=== PATIENT | female | born 1950 | race Caucasian/White ===

== ENCOUNTER 2017-09-19 05:57 | Day surgery (SDC) | payer MEDICARE, OTHER ==
[2017-09-18 09:53] VITALS: BMI 29.0
[~2017-09-19 05:57] MED LIST: LACTATED RINGERS 1,000 ML IV SCH
[2017-09-19 06:54] VITALS: TEMP 97.4
[2017-09-19] MEDS ORDERED: PROPOFOL 10 MG/ML 20 ML VIAL IV ONE (07:04)
[2017-09-19 07:32] VITALS: PULSE 82
--- NOTE | 2017-09-19 07:32 | P.PCN ---
Date of Procedure: 09/19/17 Procedure(s) Performed: Procedure: Total colonoscopy. Preoperative diagnosis: Occult positive blood in the stools. Postoperative diagnosis: Low-grade internal hemorrhoids without bleeding, otherwise, exam to the cecum within normal limits. Preparation: HalfLytely prep. Sedation: Was provided by anesthesia. Brief clinical history: The patient is a 66-year-old female who is referred for this evaluation because of finding of positive occult blood in her stools. She had a prior colonoscopy in 2005. She has not been having any abdominal complaints, bleeding or anemia. Procedure: With the patient on her left lateral decubitus position and after informed consent and adequate sedation, the perianal area was inspected and it did not show any fissures or fistulas. There were no masses felt on digital rectal examination. The Olympus CFQ 160L video colonoscope was then inserted in the rectum in the usual fashion and advanced to the cecum. The preparation was good. The mucosa appeared healthy. No obvious polyps or tumors were seen or any obvious diverticular disease or other pathology. All fecal water was yellowish in color. I retroflexed the endoscope in the rectum before the endoscope was withdrawn. Low-grade internal hemorrhoids were noted without any evidence of bleeding. The patient tolerated the procedure well. Plan: The patient was reassured. She will follow-up with you as planned. In the absence of upper abdominal complaints or anemia, I did not recommend upper GI workup at this time further workup of her Hemoccult-positive stools. This can be kept as a contingency based on her course. I will be happy to see in the future.
[2017-09-19 07:50] VITALS: BP 128/74; RESP 18
== END 2017-09-19 08:17 | disposition home or self-care (01) ==
LOC: ORWHC2ENDO 05:57
DX: K92.1 Melena (principal); K64.8 Other hemorrhoids; Z88.2 Allergy status to sulfonamides; Z88.8 Allergy status to other drugs, medicaments and biological substances; Z79.899 Other long term (current) drug therapy; Z88.6 Allergy status to analgesic agent; Z88.5 Allergy status to narcotic agent; F41.9 Anxiety disorder, unspecified
CPT/HCPCS: 45378; J2704

== ENCOUNTER 2018-01-24 17:46 | Emergency (ER) | payer MEDICARE, OTHER ==
--- NOTE | 2018-01-24 20:38 | ED ---
Extremity Problem HPI - General Chief complaint: Extremity Problem,Nontraumatic Stated complaint: poss cellulitis in both legs Time Seen by Provider: 01/24/18 20:24 Source: patient Mode of arrival: ambulatory Limitations: no limitations - History of Present Illness Initial comments: 67-year-old female patient presents to the emergency department today for complaints of bilateral lower extremity redness and pain. Patient states that this has been going on for the last 4-5 days. States it is worsening every day. She states that the areas are tender to the touch. Patient did recently return from [place] approximately a week and a half ago. States he did drive back to [place]. She denies any chest pain or shortness of breath with this. Denies any dizziness or weakness. Denies any fevers or chills. Patient is able to ambulate without difficulty. She denies any leg swelling. Patient denies any recent rash, abdominal pain, nausea, vomiting, diarrhea, constipation , back pain, numbness, tingling, dizziness, weakness, hematuria, dysuria, urinary urgency, urinary frequency, headache, visual changes, or any other complaints. - Related Data Home Medications Medication Instructions Recorded Confirmed ALPRAZolam [Xanax] 0.25 mg PO BID PRN 09/18/17 09/19/17 Cholecalciferol (Vitamin D3) 2,000 unit PO DAILY 09/18/17 09/19/17 [Vitamin D3] Hydrochlorothiazide 25 mg PO Q48H 09/18/17 09/19/17 Previous Rx's Medication Instructions Recorded Cephalexin [Keflex] 500 mg PO Q6H #40 cap 01/24/18 Allergies Allergy/AdvReac Type Severity Reaction Status Date / Time acetaminophen [From Vicodin] Allergy Unknown Verified 01/24/18 18:52 hydrocodone [From Vicodin] Allergy Unknown Verified 01/24/18 18:52 ibuprofen [From Motrin] Allergy Anaphylaxis Verified 01/24/18 18:52 pregabalin [From Lyrica] Allergy Rash/Hives Verified 01/24/18 18:52 rofecoxib [From Vioxx] Allergy Unknown Verified 01/24/18 18:52 Sulfa (Sulfonamide Allergy Unknown Verified 01/24/18 18:52 Antibiotics) Review of Systems ROS Statement: Those systems with pertinent positive or pertinent negative responses have been documented in the HPI. ROS Other: All systems not noted in ROS Statement are negative. Past Medical History Additional Past Medical History / Comment(s): "pulmonary dyspnea" History of Any Multi-Drug Resistant Organisms: None Reported Additional Past Surgical History / Comment(s): lung biopsy Past Anesthesia/Blood Transfusion Reactions: No Reported Reaction Past Psychological History: Anxiety Smoking Status: Never smoker Past Alcohol Use History: None Reported Past Drug Use History: None Reported - Past Family History Mother Family Medical History: No Reported History General Exam Limitations: no limitations General appearance: alert, in no apparent distress, other (This is a well- developed, well-nourished adult female patient in no acute distress. Vital signs upon presentation are temperature 98.3F, pulse 93, respirations 20, blood pressure 136/76, pulse ox 99% on room air.) Eye exam: Present: normal appearance, PERRL, EOMI. Absent: scleral icterus, conjunctival injection, periorbital swelling ENT exam: Present: normal exam, normal oropharynx, mucous membranes moist Respiratory exam: Present: normal lung sounds bilaterally. Absent: respiratory distress, wheezes, rales, rhonchi, stridor Cardiovascular Exam: Present: regular rate, normal rhythm, normal heart sounds. Absent: systolic murmur, diastolic murmur, rubs, gallop, clicks Extremities exam: Present: full ROM, tenderness (Over the medial calf, medial knee, and medial lower thigh.), normal capillary refill, other (There is erythema and warmth noted to the medial lower thigh, knee, and proximal medial calf. Pedal and posttibial pulses are 2+ and equal bilaterally. ). Absent: normal inspection, pedal edema, joint swelling, calf tenderness Neurological exam: Present: alert, oriented X3, CN II-XII intact Psychiatric exam: Present: normal affect, normal mood Skin exam: Present: warm, dry, intact, normal color. Absent: rash Course Vital Signs 01/24/18 01/24/18 01/24/18 18:49 22:13 23:03 Temperature 98.3 F 97.7 F 98 F Pulse Rate 93 80 87 Respiratory 20 18 18 Rate Blood Pressure 136/76 143/64 137/87 O2 Sat by Pulse 99 98 98 Oximetry Medical Decision Making - Medical Decision Making 67-year-old female patient presented to the emergency department today for evaluation of erythema and tenderness to the bilateral legs. Physical examination did reveal erythema and tenderness over the lower medial thighs, medial knee, and medial proximal calves. Distal pulses are intact. Labs reviewed and are unremarkable. I did discuss with patient the possibility of a cellulitis. She'll be started on Keflex. She is instructed to follow-up with her primary care physician for recheck in 1-2 days. She is instructed to return here immediately for any new, worsening, or concerning symptoms. She verbalizes understanding and agrees with this plan. - Lab Data Result diagrams: 01/24/18 20:37 01/24/18 20:37 Lab Results 01/24/18 01/24/18 Range/Units 20:37 20:37 WBC 7.2 (3.8-10.6) k/uL RBC 4.94 (3.80-5.40) m/uL Hgb 14.4 (11.4-16.0) gm/dL Hct 44.5 (34.0-46.0) % MCV 90.1 (80.0-100.0) fL MCH 29.2 (25.0-35.0) pg MCHC 32.4 (31.0-37.0) g/dL RDW 13.2 (11.5-15.5) % Plt Count 273 (150-450) k/uL Neutrophils % 52 % Lymphocytes % 40 % Monocytes % 5 % Eosinophils % 1 % Basophils % 1 % Neutrophils # 3.8 (1.3-7.7) k/uL Lymphocytes # 2.9 (1.0-4.8) k/uL Monocytes # 0.3 (0-1.0) k/uL Eosinophils # 0.1 (0-0.7) k/uL Basophils # 0.0 (0-0.2) k/uL Sodium 139 (137-145) mmol/L Potassium 4.2 (3.5-5.1) mmol/L Chloride 100 (98-107) mmol/L Carbon Dioxide 27 (22-30) mmol/L Anion Gap 12 mmol/L BUN 23 H (7-17) mg/dL Creatinine 0.60 (0.52-1.04) mg/dL Est GFR (CKD-EPI)AfAm >90 (>60 ml/min/1.73 sqM) Est GFR (CKD-EPI)NonAf >90 (>60 ml/min/1.73 sqM) Glucose 92 (74-99) mg/dL Calcium 9.6 (8.4-10.2) mg/dL Total Bilirubin 0.2 (0.2-1.3) mg/dL AST 25 (14-36) U/L ALT 30 (9-52) U/L Alkaline Phosphatase 69 (38-126) U/L Total Protein 6.9 (6.3-8.2) g/dL Albumin 4.2 (3.5-5.0) g/dL - Radiology Data Radiology results: report reviewed, image reviewed Ultrasound venous Doppler duplex of the bilateral lower extremities was obtained. Report was reviewed in its entirety. Right and left leg were negative for DVT in either lower extremity. Disposition Clinical Impression: Cellulitis Disposition: HOME SELF-CARE Condition: Good Instructions: Cellulitis (ED) Additional Instructions: Take medications as directed. Follow-up with your primary care physician for recheck in 1-2 days. Return here immediately for any new, worsening, or concerning symptoms. Prescriptions: Cephalexin [Keflex] 500 mg PO Q6H #40 cap Is patient prescribed a controlled substance at discharge?: No Referrals: Hima Garcia DO [Primary Care Provider] - 1-2 days Time of Disposition: 22:49
[2018-01-24 20:53] LABS: Basophils % (A) 1 %; Eosinophils # (A) 0.1 k/uL (0-0.7); Eosinophils % (A) 1 %; HCT 44.5 % (34.0-46.0); HGB 14.4 gm/dL (11.4-16.0); Lymphocytes # (A) 2.9 k/uL (1.0-4.8); Lymphocytes % (A) 40 %; MCH 29.2 pg (25.0-35.0); MCHC 32.4 g/dL (31.0-37.0); MCV 90.1 fL (80.0-100.0); Mean Platelet Volume 7.4; Monocytes # (A) 0.3 k/uL (0-1.0); Monocytes % (A) 5 %; Neutrophils # (A) 3.8 k/uL (1.3-7.7); Neutrophils % (A) 52 %; Platelet Count 273 k/uL (150-450); RBC 4.94 m/uL (3.80-5.40); RDW 13.2 % (11.5-15.5); WBC 7.2 k/uL (3.8-10.6)
[2018-01-24 21:04] LABS: ALT 30 U/L (9-52); AST 25 U/L (14-36); Albumin 4.2 g/dL (3.5-5.0); Alkaline Phosphatase 69 U/L (38-126); Anion Gap 12 mmol/L; Blood Urea Nitrogen 23 mg/dL (7-17); Calcium 9.6 mg/dL (8.4-10.2); Carbon Dioxide 27 mmol/L (22-30); Chloride 100 mmol/L (98-107); Glucose 92 mg/dL (74-99); Potassium 4.2 mmol/L (3.5-5.1); Sodium 139 mmol/L (137-145); Total Bilirubin 0.2 mg/dL (0.2-1.3); Total Protein 6.9 g/dL (6.3-8.2)
--- NOTE | 2018-01-24 22:07 | US ---
EXAMINATION TYPE: US venous doppler duplex LE BI DATE OF EXAM: 01/24/2018 8:30 PM COMPARISON: NONE CLINICAL HISTORY: Pain. Bilateral leg swelling. SIDE PERFORMED: Bilateral TECHNIQUE: The lower extremity deep venous system is examined utilizing real time linear array sonog marco a with graded compression, doppler sonography and color-flow sonography. VESSELS IMAGED: External Iliac Vein (EIV) Common Femoral Vein Deep Femoral Vein Greater Saphenous Vein * Femoral Vein Popliteal Vein Small Saphenous Vein * Proximal Calf Veins (* superficial vessels) Right Leg: Negative for DVT Left Leg: Negative for DVT Grayscale, color doppler, spectral doppler imaging performed of the deep veins of the bilateral lower extremities. There is normal flow, compressibility, vascular waveforms. IMPRESSION: No ultrasound evidence for acute DVT in either lower extremity.
[2018-01-24 22:14] VITALS: RESP 18
[2018-01-24] MEDS ORDERED: CEPHALEXIN 500MG STARTER PACK 4 CAP BTL PO STA (22:49)
[2018-01-24 23:04] VITALS: BP 137/87; PULSE 87; TEMP 98
== END 2018-01-24 23:04 | disposition home or self-care (01) ==
LOC: EC 17:46
DX: L03.115 Cellulitis of right lower limb (principal); L03.116 Cellulitis of left lower limb; Z79.899 Other long term (current) drug therapy; Z88.6 Allergy status to analgesic agent; Z88.5 Allergy status to narcotic agent; Z88.8 Allergy status to other drugs, medicaments and biological substances; Z88.2 Allergy status to sulfonamides
CPT/HCPCS: 36415; 80053; 85025; 93970; 99284

== ENCOUNTER → 2019-05-01 | Outpatient (CLI) | payer MEDICARE, OTHER ==
--- NOTE | 2019-05-01 12:58 | BD ---
EXAMINATION TYPE: Axial Bone Density DATE OF EXAM: 05/01/2019 COMPARISON: NONE CLINICAL HISTORY: Disease of bone structure per order. Height: 66 IN Weight: 185 LBS RISK FACTORS HISTORY OF: Family History of Osteoporosis: YES MOTHER, GRANDMOTHER, Active: YES Postmenopausal woman: AGE 56 Adrenal Insufficiency: YES IN 2012 MEDICATIONS: Additional Medications: WATER PILL, FISH OIL EXAM MEASUREMENTS: Bone mineral densitometry was performed using the [employer]. System. Bone mineral density as measured about the Lumbar spine is: ----- L1-L4(G/cm2): 0.944 T Score Values are as follows: ----- L2: -1.9 ----- L3: -2.1 ----- L4: -1.9 ----- L1-L4: -2.0 Bone mineral density BASELINE Bone mineral density about the R hip (g/cm2): 0.740 Bone mineral density about the L hip (g/cm2): 0.695 T Score values are as follows: -----R Neck: -2.1 -----L Neck: -2.5 -----R Total: -2.1 -----L Total: -2.3 Bone mineral density BASELINE IMPRESSION: Osteopenia (T Score between -2.5 and -1). There is slightly increased risk of fracture and the patient may be considered for treatment. Re-Screen 2-5 years. NOTE: T-SCORE=SD OF THE YOUNG ADULT MEAN.
--- NOTE | 2019-05-01 14:27 | MM ---
Reason for exam: screening (asymptomatic). Last mammogram was performed 3 years and 6 months ago. History: Patient is postmenopausal. Physical Findings: A clinical breast exam by your physician is recommended on an annual basis and results should be correlated with mammographic findings. MG 3D Screening Mammo W/Cad Bilateral CC and MLO view(s) were taken. Prior study comparison: November 13, 2015, bilateral MG screening mammo w CAD. September 26, 2013, mammogram, performed at [facility]. There are scattered fibroglandular densities. There are benign appearing round calcifications in the left breast. There is no discrete abnormality. ASSESSMENT: Benign, BI-RAD 2 RECOMMENDATION: Routine screening mammogram of both breasts in 1 year.
== END | disposition home or self-care (01) ==
LOC: RADMAMWWP 10:57
PROVIDERS: ATTEND Family Medicine
DX: Z12.31 Encounter for screening mammogram for malignant neoplasm of breast (principal); M85.80 Other specified disorders of bone density and structure, unspecified site
CPT/HCPCS: 77063; 77067; 77080

== ENCOUNTER → 2020-04-13 | Outpatient (CLI) | payer MEDICARE, OTHER ==
--- NOTE | 2020-04-13 15:14 | CT ---
EXAMINATION TYPE: CT chest wo con DATE OF EXAM: 04/13/2020 COMPARISON: CT 11/28/2014 HISTORY: History of pulmonary fibrosis, dyspnea CT DLP: 187 mGycm. Automated Exposure Control for Dose Reduction was Utilized. TECHNIQUE: CT scan of the thorax is performed without IV contrast. Limited sections performed with h igh-resolution algorithm. Exam performed in supine and prone positions. FINDINGS: LUNGS: The lungs are remarkable for some thickened parenchymal bands scattered within the lungs are s imilar to prior exam is some bandlike calcification present in the right upper lobe as on prior with some local pleural thickening. No significant interlobular septal pleural thickening, no honeycombing . No significant groundglass opacity or bronchiectasis. No pleural or pericardial effusion. Apical pl eural thickening is present. MEDIASTINUM: Lack of IV contrast is noted to limit evaluation for mediastinal and especially hilar ad enopathy. There are no definitive greater than 1 cm hilar or mediastinal lymph nodes. No cardiomega ly. There are coronary artery calcifications present. OTHER: No additional significant abnormality is seen. IMPRESSION: Findings appear similar to prior exam. There are areas of scarring within the lungs.
== END | disposition home or self-care (01) ==
LOC: RADCTMAIN 13:38
PROVIDERS: ATTEND Internal Medicine Critical Care Medicine
DX: J98.4 Other disorders of lung (principal); Z88.1 Allergy status to other antibiotic agents; Z88.6 Allergy status to analgesic agent
CPT/HCPCS: 71250

== ENCOUNTER → 2020-04-17 | Outpatient (CLI) | payer MEDICARE, OTHER | END | disposition home or self-care (01) | LOC: CPPFTMAIN 08:38 | PROVIDERS: ATTEND Internal Medicine Critical Care Medicine | DX: R94.2 Abnormal results of pulmonary function studies (principal); R06.00 Dyspnea, unspecified | CPT/HCPCS: 94060; 94726; 94729 ==

== ENCOUNTER → 2022-03-17 | Outpatient (CLI) | payer MEDICARE, OTHER ==
--- NOTE | 2022-03-17 15:51 | US ---
EXAMINATION TYPE: US kidneys/renal and bladder DATE OF EXAM: 03/17/2022 COMPARISON: US CLINICAL HISTORY: R30.0 DYSURIA,R10.2 PELVIC PAIN. Dysuria, pelvic pain. EXAM MEASUREMENTS: Right Kidney: 12.7 x 4.6 x 4.2 cm Left Kidney: 11.5 x 5.8 x 5.2 cm Right Kidney: Appears slightly enlarged. Two anechoic areas seen medially, versus possible dilated r enal pelvis. 1. measures: 2.4 x 2.3 x 1.8 cm. 2. measures: 2.3 x 1.8 x 1.4 cm. Left Kidney: Appearance of dilated collecting system. Bladder: Appears anechoic. Bilateral Jets seen: Yes IMPRESSION: 1. There appear to be right renal cysts present. 2. Mild prominence of the renal collecting systems bilaterally may be present. 3. Follow-up as clinically indicated.
== END | disposition home or self-care (01) ==
LOC: RADUSWWP 15:07
PROVIDERS: ATTEND Family Medicine
DX: N28.1 Cyst of kidney, acquired (principal)
CPT/HCPCS: 76770

== ENCOUNTER → 2022-06-29 | Outpatient (CLI) | payer MEDICARE, OTHER ==
[2022-06-29 14:28] LABS: African American GFR (CKD) >90 (>60 ml/min/1.73 sqM); Blood Urea Nitrogen 18 mg/dL (7-17); Non-African American GFR(CKD) >90 (>60 ml/min/1.73 sqM)
--- NOTE | 2022-06-29 16:18 | CT ---
EXAMINATION TYPE: CT urogram wo/w con DATE OF EXAM: 06/29/2022 COMPARISON: None HISTORY: Renal cyst of kidney, hydronephrosis. Note: items externally on LT side by hip was something in patient pocket CT DLP: 3414 mGycm Automated exposure control for dose reduction was used. Contrast: None Technique: Axial images 3 mm thick sections. Reconstructed images in the coronal plane. Three-D recon structed images through the kidneys were performed. FINDINGS: Limited CT sections were obtained through the lung bases which are clear. CT ABDOMEN: Liver and spleen and adrenal glands have a normal density without discrete masses or cyst s. The adrenal glands are normal. Pancreas and gallbladder appear unremarkable. Loops of bowel withou t oral contrast appear unremarkable. Abdominal aorta and inferior vena cava are unremarkable. CT PELVIS: The appendix is normal. Loops of bowel within the pelvis appear unremarkable. Uterus and a dnexa are normal. Urinary bladder appears unremarkable. Osseous structures as visualized appear normal. Attention is paid to the kidneys. 3-D reconstructed images performed on a separate computer review. P re and postcontrast imaging is performed. No renal stones are evident. Hydronephrosis is not apparent. There are peripelvic cysts present bilat erally slightly larger on the left. Small cortical renal cysts as on the medial left kidney. Ureters follow a normal caliber course and contour to the urinary bladder. Urinary bladder fills norm ally without intraluminal or extramural defect. Urine contrast level is present. IMPRESSION: 1. BILATERAL PERIPELVIC CYSTS SLIGHTLY LARGER ON THE LEFT. NO HYDRONEPHROSIS IS EVIDENT.
== END | disposition home or self-care (01) ==
LOC: RADCTMAIN 13:44
PROVIDERS: ATTEND Urology
DX: N28.1 Cyst of kidney, acquired (principal); N13.30 Unspecified hydronephrosis
CPT/HCPCS: 82565; 84520; 74178; 36415; 74400; Q9967

== ENCOUNTER → 2023-05-02 | Outpatient (CLI) | payer MEDICARE, OTHER ==
--- NOTE | 2023-05-02 17:31 | BD ---
EXAMINATION TYPE: Axial Bone Density DATE OF EXAM: 05/02/2023 CLINICAL HISTORY: 72 years old Female. ICD-10 CODE: M85.9 DISORDER OF BONE DESNITY AND STRUCTURE Height: 66 Weight: 193 FRAX RISK QUESTIONS: Family History (Parent hip fracture): yes, no fx Glucocorticoids (More than 3mos): yes, in the past for a large block of time (Ex: prednisone, prednisolone, methylprednisolone, dexamethasone, and hydrocortisone). History of Fracture in Adulthood: yes 3. Menopause before 45: at age 56 RISK FACTORS HISTORY OF: hx of great toe fxs, and ribs as an adult Family History of Osteoporosis: yes, mother and grandmother without hip fxs Diet low in dairy products/other sources of calcium: yes, lactose intolerant. Postmenopausal woman: yes at 56 yrs Hyperparathyroidism: no Adrenal Insufficiency: no MEDICATIONS: Prednisone or other steroids: in the past only for 2 yrs straight, for her lungs Additional Medications: xanax prn, reflux meds, vit d and calcium Additional History: reflux, hx of chronic chest and lung issues that needed steroids, osteoarthritis, chronic pain EXAM MEASUREMENTS: Bone mineral densitometry was performed using the [employer] System. Bone mineral density as measured about the Lumbar spine is: ----- L1-L4(G/cm2): 0.933 T Score Values are as follows: ----- L1: -2.4 ----- L2: -2.4 ----- L3: -2.2 ----- L4: -1.6 ----- L1-L4: -2.1 Z Score Values are as follows: ----- L1: -1.4 ----- L2: -1.4 ----- L3: -1.3 ----- L4: -0.6 ----- L1-L4: -1.1 Bone mineral density has: Decreased -1.2% since study of: 05.01.2019 Bone mineral density about the R hip (g/cm2): 0.743 Bone mineral density about the L hip (g/cm2): 0.720 T Score values are as follows: -----R Neck: -2.2 -----L Neck: -2.5 -----R Total: -2.1 -----L Total: -2.3 Z Score values are as follows: -----R Neck: -1.0 -----L Neck: -1.3 -----R Total: -1.2 -----L Total: -1.3 Bone mineral density has: Increased 0.4% since study of: 2019 FRAX%s: The graph provided illustrates a 33.6% chance for a major osteoporotic fx and a 10.0% chance for the hips probability for fx in 10 years time. IMPRESSION: Osteopenia (T Score between -2.5 and -1). There is slightly increased risk of fracture and the patient may be considered for treatment. Re-Screen 2-5 years. NOTE: T-SCORE=SD OF THE YOUNG ADULT MEAN.
--- NOTE | 2023-05-03 20:36 | MM ---
Reason for Exam: Screening (asymptomatic). Last mammogram was performed 4 year(s) and 0 month(s) ago. Patient History: Menarche at age 13. First Full-Term at age 28. Postmenopausal. Risk Values: Cheryl 5 year model risk: 2.1%. NCI Lifetime model risk: 6.1%. Prior Study Comparison: 09/26/2013 Screening Mammogram, [facility]. 11/13/2015 Bilateral Screening Mammogram, [facility]. 05/01/2019 Bilateral Screening Mammogram, [facility]. Tissue Density: The breast tissue is almost entirely fat. Findings: Analyzed By CAD. Small focal asymmetry central age aspect of the right breast remains unchanged from 2019. There is no suspicious group of microcalcifications or new suspicious mass in either breast. Overall Assessment: Benign, BI-RAD 2 Management: Screening Mammogram of both breasts in 1 year. . Patient should continue monthly self-breast exams. A clinical breast exam by your physician is recommended on an annual basis. This exam should not preclude additional follow-up of suspicious palpable abnormalities. Note on Cheryl scores and lifetime risk: 1. A Cheryl score greater than 3% is considered moderate risk. If this is the case, consider specialist referral to assess eligibility for a risk reducing agent. 2. If overall lifetime risk for the development of breast cancer is 20% or higher, the patient may qualify for future screening with alternating mammogram and breast MRI. Electronically signed and approved by: Alexandru Lugo M.D. Radiologist
== END | disposition home or self-care (01) ==
LOC: RADBDWWP 12:27
PROVIDERS: ATTEND Family Medicine
DX: Z12.31 Encounter for screening mammogram for malignant neoplasm of breast (principal); M85.89 Other specified disorders of bone density and structure, multiple sites; M81.0 Age-related osteoporosis without current pathological fracture; Z78.0 Asymptomatic menopausal state
CPT/HCPCS: 77063; 77067; 77080

== ENCOUNTER → 2024-05-23 | Outpatient (CLI) | payer MEDICARE, OTHER ==
--- NOTE | 2024-06-13 20:09 | MM ---
Reason for Exam: Screening (asymptomatic). Last mammogram was performed 1 year(s) and 1 month(s) ago. Patient History: Menarche at age 13. First Full-Term at age 28. Postmenopausal. Patient has history of breast feeding. Paternal aunt had breast cancer at or over age 50. Maternal grandmother had breast cancer at or over age 50. Risk Values: Cheryl 5 year model risk: 2.1%. NCI Lifetime model risk: 5.9%. Prior Study Comparison: 05/02/2023 Bilateral MG 3D screening mammo w/cad, [facility]. Tissue Density: There are scattered areas of fibroglandular density. Findings: Analyzed By CAD. Subareolar focal asymmetry on the right is unchanged. There is no suspicious group of microcalcifications or new suspicious mass in either breast. Overall Assessment: Benign, BI-RAD 2 Management: Screening Mammogram of both breasts in 1 year. Patient should continue monthly self-breast exams. A clinical breast exam by your physician is recommended on an annual basis. This exam should not preclude additional follow-up of suspicious palpable abnormalities. Note on Cheryl scores and lifetime risk: 1. A Cheryl score greater than 3% is considered moderate risk. If this is the case, consider specialist referral to assess eligibility for a risk reducing agent. 2. If overall lifetime risk for the development of breast cancer is 20% or higher, the patient may qualify for future screening with alternating mammogram and breast MRI. Electronically signed and approved by: Alexandru Lugo M.D. Radiologist
== END | disposition home or self-care (01) ==
LOC: RADMAMWWP 10:54
PROVIDERS: ATTEND Physician Assistant Medical
DX: Z12.31 Encounter for screening mammogram for malignant neoplasm of breast (principal); R92.323 Mammographic fibroglandular density, bilateral breasts; Z78.0 Asymptomatic menopausal state; Z80.3 Family history of malignant neoplasm of breast
CPT/HCPCS: 77063; 77067